=== PATIENT | female | born 1995 | race African-American/Black ===

== ENCOUNTER 2017-01-21 23:30 | Emergency (ER) | payer MEDICAID ==
[~2017-01-21] VITALS: Ht 157.5 cm; Wt 68.0 kg
[2017-01-21 23:36] VITALS: BP 111/70; PULSE 80; RESP 16; TEMP 97.8; O2SAT 100
[2017-01-22] MEDS ORDERED: PENI500T PO (00:06)
--- NOTE | 2017-01-22 00:10 | PD ---
HPI Chief Complaint: ENT Complaint Time Seen by Provider: 00:02 Travel History International Travel<30 days: No Contact w/Intl Traveler<30days: No Traveled to known affect area: No History of Present Illness HPI 21-year-old black female presents emergency Department with complaints of sore throat tonight. She states that she is 8.5 Months . She denies any fever or chills. No vaginal complaints. No leakage of fluid. No urinary symptoms. She states her symptoms are mild. PFSH Past Medical History Medical History: Denies Significant Hx ?: : 1 Past Surgical History Surgical History: No Previous Surgery Social History Alcohol Use: No Tobacco Use: No Substance Use: No Allergies-Medications (Allergen,Severity, Reaction): Coded Allergies: No Known Allergies (Unverified , 01/21/17) Reported Meds & Prescriptions Reported Meds & Active Scripts Active Penicillin V Potassium 500 Mg Tab 500 Mg PO Q12HR Review of Systems Except as stated in HPI: all other systems reviewed are Neg Physical Exam Narrative GENERAL: This is a well-nourished, well-developed patient, in no apparent distress. SKIN: No rashes, ecchymoses or lesions. Warm and dry. HEAD: Atraumatic. Normocephalic. EYES: PERRL, EOMI, no discharge or injection. No scleral icterus. EARS: Clear NOSE: Nasal turbinates appear normal. THROAT: Mucosa pink and moist. Airway patent. NECK: Trachea midline. supple, moves head freely. LUNGS: Clear to auscultation. CV: Regular in rhythm. ABDOMEN: Soft nontender. Gravid uterus EXT: No clubbing cyanosis or edema. Data Data Last Documented VS Vital Signs Date Time Temp Pulse Resp B/P (MAP) Pulse Ox O2 Delivery O2 Flow Rate FiO2 01/21/17 23:36 97.8 80 16 111/70 (84) 100 Orders Orders Penicillin V Potassium (Veetids) (01/22/17 00:15) MDM Medical Decision Making Medical Screen Exam Complete: Yes Emergency Medical Condition: Yes Medical Record Reviewed: Yes Differential Diagnosis MDM: High Differential diagnoses: Strep throat, viral pharyngitis, mono, peritonsillar abscess, retropharyngeal abscess, Matias's angina Narrative Course Patient's given Pen-Vee K 500 mg by mouth. This acute pharyngitis Diagnosis Primary Impression: Acute pharyngitis Qualified Codes: J02.9 - Acute pharyngitis, unspecified Patient Instructions: General Instructions Additional Instructions: Rest. Force fluids. Saltwater gargles. Tylenol. Pen-Vee K. Follow-up with a primary care doctor in one week. Return to the ER if any problems. Med/Other Pt SpecificInfo: Prescription(s) given Scripts Penicillin V Potassium (Penicillin V Potassium) 500 Mg Tab 500 MG PO Q12HR for Infection, #20 TAB 0 Refills Prov: Merly Meyer MD 01/22/17 Disposition: 01 DISCHARGE HOME Condition: Stable Mark Liu Jan 22, 2017 00:10
[2017-01-22] MEDS ORDERED: PENICILLIN V POTASSIUM 500 MG TAB PO ONE (00:15)
== END 2017-01-22 00:19 | disposition home or self-care (01) ==
LOC: NEPD 23:30
DX: J02.9 Acute pharyngitis, unspecified (principal); Z34.93 Encounter for supervision of normal pregnancy, unspecified, third trimester
CPT/HCPCS: 99283